=== PATIENT | female | born 1975 | race American Indian/Alaskan Native ===

== ENCOUNTER 2023-04-01 03:20 | Inpatient (IN) | payer SELFPAY ==
[~2023-04-01] VITALS: Wt 83.0 kg
[~2023-04-01 03:20] MED LIST: ALPR.5; AMOX500 PO; ATOR80 PO; BUSP5 PO; CEFD300 PO; CIPR500 PO; CYCL10 PO; DIAZ5 PO; ESCI10; GABA100 PO; HYDACE10B PO; HYDACE25S PR; HYDACE5 PO; HYDACE7.5 PO; IBUP200 PO; IBUP400; IBUP800; IBUP800 PO; KETO10 PO; LACT PO; LISI20 PO; LOPE2C PO; LORA1 PO; MEDR10 PO; MELATONIN5 M1 PO; META800 PO; METCAR750 PO; METH10 PO; METPRE4DP PO; NAPR500 PO; NAPR550 PO; NITR100CA PO; OXYACE5T PO; OXYACE7.5T PO; OXYC10ER PO; OXYC10TA19 PO; OXYC20ER; OXYC20ER PO; OXYC5; OXYC5 PO; PENVK250 PO; PENVK500 PO; PROACE100 PO; RANI150; TRAM50 PO
[2023-04-01 06:56] LABS: Albumin, Blood 4.2 g/dL (3.4-5.0); Albumin/Globulin Ratio 0.8 (0.8-1.8); BASOPHILS ABSOLUTE AUTO 0.02 K/mm3 (0.00-0.23); BASOPHILS PERCENT AUTO 0 % (0-2); Bilirubin, Total 2.3 mg/dL (0.1-1.0); Bun/Creatinine Ratio 14.2 (12.0-20.0); Creatinine, Blood 1.76 mg/dL (0.40-1.00); EOSINOPHILS ABSOLUTE AUTO 0.02 K/mm3 (0.00-0.68); EOSINOPHILS PERCENT AUTO 0 % (0-6); Globulin, Blood 5.1 g/dL (2.2-4.0); Hematocrit 50.8 % (33.0-51.0); Hemoglobin 18.5 g/dL (11.5-16.0); IMMATURE GRAN ABSOLUTE AUTO 0.04 K/mm3 (0.00-0.10); IMMATURE GRAN PERCENT AUTO 1 % (0-1); LYMPHOCYTES ABSOLUTE AUTO 1.16 K/mm3 (0.84-5.20); LYMPHOCYTES PERCENT AUTO 14 % (21-46); MONOCYTES ABSOLUTE AUTO 0.32 K/mm3 (0.16-1.47); MONOCYTES PERCENT AUTO 4 % (4-13); Mean Corpuscular HGB 33.5 pg (26.0-34.0); Mean Corpuscular HGB Conc 36.4 g/dL (31.5-36.5); Mean Corpuscular Volume 92 fL (80-100); NEUTROPHILS PERCENT AUTO 82 % (41-73); NRBC ABSOLUTE 0.02 K/mm3 (0.00-0.02); NRBC Auto 0.2 /100 WBC (0.0-0.2); Platelet Count 177 K/mm3 (150-400); Potassium, Blood 2.7 mmol/L (3.5-5.5); RDW Coefficient Variation 15.8 % (11.7-14.2); RDW Standard Deviation 51.3 fL (35.1-46.3); Red Blood Cell Count 5.52 M/mm3 (3.80-5.20); Total Protein, Blood 9.3 g/dL (6.4-8.2); White Blood Cell Count 8.56 K/mm3 (4.00-11.30)
[2023-04-01 09:51] LABS: Appearance, Urine Cloudy (Clear); Bilirubin, Urine Neg (Neg); Blood, Urine 2+ (Neg); Color, Urine Yellow (P-Yellow); Glucose Qualitative, Urine Neg (Neg); Ketones, Urine 1+ (Neg); Leukocyte Esterase, Urine 2+ (Neg); Nitrite, Urine Neg (Neg); Protein, Urine 3+ (Neg); Specific Gravity, Urine 1.015 (1.003-1.022); Urobilinogen, Urine 1+ (Normal)
[2023-04-01 10:09] LABS: U Amphetamine Screen Not Detected; U Barbituate Screen Not Detected; U Benzodiazapine Screen Not Detected; U Buprenorphine Screen Not Detected; U Cannabinoids Screen DETECTED; U Cocaine Screen Not Detected; U Methadone Screen Not Detected; U Methamphetamine Screen Not Detected; U Opiates Screen Not Detected; U Oxycodone Screen Not Detected; U Phencyclidine Screen Not Detected; U Propoxyphene Screen Not Detected
[2023-04-01 10:12] LABS: Squamous Epithelial Cells Rare /hpf (Few)
[2023-04-01 10:13] LABS: Amorphous Heavy (0-Heavy); Bacteria Many /hpf
[2023-04-01 10:15] VITALS: BP 151/139
[2023-04-01] MEDS ORDERED: OMEP20ER PO (11:01)
[2023-04-01] MEDS ORDERED: IBUP200 PO (11:01)
--- NOTE | 2023-04-01 11:45 | NUR ---
ADMISSION: REPORT RECEIVED FROM ED RN. PT TO UNIT AT 1015. PT A/O, AMBULATORY TO BED. NOTED TACHYCARDIA AND HTN. PT PAINFUL, WILL MONITOR. PT DENIES CP. TELE APPLIED AND BOX NUMBER VERIFIED BY SERENE GOEL. SINUS TACH 107. PT MEDICATED FOR PAIN AT R HIP RELATED TO FALL AT HOME. ORIENTED TO ROOM AND CALL LIGHT. ORDERED FLUIDS INFUSING WELL POTASSIUM.
[2023-04-01 11:47] VITALS: BP 163/104
[2023-04-01 12:45] VITALS: BP 122/89
[2023-04-01 13:56] LABS: Bun/Creatinine Ratio 16.1 (12.0-20.0); Calcium, Blood 8.8 mg/dL (8.5-10.1); Creatinine, Blood 1.43 mg/dL (0.40-1.00); Potassium, Blood 2.6 mmol/L (3.5-5.5)
[2023-04-01 14:02] VITALS: BP 139/91
--- NOTE | 2023-04-01 14:58 | NUR ---
1300 LAB RESULTS SHOW GLUCOSE [address] PORTER MADE AWARE, SEE NEW ORDERS
--- NOTE | 2023-04-01 17:11 | NUR ---
SUMMARY: NO ACUTE CHANGE SINCE ADMIT. A/O, NOTED TACHYCARDIA. DR. FLAHERTY IS AWARE. OTHERWISE TELE AND VSS TONIGHT AND CBG DID NOT NEED INSULIN COVERAGE. PT INDEP IN ROOM, DENIES DIZZINESS. NS WITH KCL INFUSING, PT VOIDING. PT MEDICATED WITH ULTRAM FOR PAIN AT R HIP FROM FALL AT HOME. NO ACUTE CONCERNS, PT USES CALL LIGHT AND MAKE NEEDS KNOWN.
[2023-04-01 19:50] VITALS: BP 175/78
[2023-04-01 20:29] LABS: Calcium, Blood 8.6 mg/dL (8.5-10.1); Creatinine, Blood 1.2 mg/dL (0.40-1.00); Potassium, Blood 2.8 mmol/L (3.5-5.5)
[2023-04-02] VITALS (7 sets, daily range): BP systolic 138–189; BP diastolic 89–108
[2023-04-02 05:16] LABS: BASOPHILS ABSOLUTE AUTO 0.01 K/mm3 (0.00-0.23); BASOPHILS PERCENT AUTO 0 % (0-2); EOSINOPHILS ABSOLUTE AUTO 0.12 K/mm3 (0.00-0.68); EOSINOPHILS PERCENT AUTO 2 % (0-6); Hematocrit 38.1 % (33.0-51.0); Hemoglobin 13.6 g/dL (11.5-16.0); IMMATURE GRAN ABSOLUTE AUTO 0.02 K/mm3 (0.00-0.10); IMMATURE GRAN PERCENT AUTO 0 % (0-1); LYMPHOCYTES ABSOLUTE AUTO 0.99 K/mm3 (0.84-5.20); LYMPHOCYTES PERCENT AUTO 15 % (21-46); MONOCYTES ABSOLUTE AUTO 0.33 K/mm3 (0.16-1.47); MONOCYTES PERCENT AUTO 5 % (4-13); Mean Corpuscular HGB 34.2 pg (26.0-34.0); Mean Corpuscular HGB Conc 35.7 g/dL (31.5-36.5); Mean Corpuscular Volume 96 fL (80-100); Mean Platelet Volume 12.1 fL (9.1-12.4); NEUTROPHILS ABSOLUTE AUTO 5.32 K/mm3 (1.96-9.15); NEUTROPHILS PERCENT AUTO 78 % (41-73); Platelet Count 73 K/mm3 (150-400); RDW Coefficient Variation 15.6 % (11.7-14.2); RDW Standard Deviation 53.7 fL (35.1-46.3); Red Blood Cell Count 3.98 M/mm3 (3.80-5.20); White Blood Cell Count 6.79 K/mm3 (4.00-11.30)
--- NOTE | 2023-04-02 05:25 | NUR ---
SHIFT SUMMARY PT ABLE TO REST T/O NIGHT. PT DENIES ANY N/V. CIWA SCORES ARE STABLE. PT IN SINUS TACH MOST OF NIGHT. BP ELEVATED THIS MORNING, MEDICATED PER EMAR. BP RECHECKED, STILL ELEVATED. NOTIFIED, ORDER FOR HYDRALAZINE. PT UP TO BATHROOM INDEPENDENTLY DURING NIGHT. PT PAIN MANAGED PER EMAR. C/O NAUSEA ONCE DURING NIGHT MEDICATED PER EMAR. TOLERTING PO INTAKE. NO OTHER CONCERNS AT THIS TIME. CALL LIGHT WITHIN REACH
[2023-04-02 05:52] LABS: Magnesium, Blood 2.2 mg/dL (1.6-2.4)
[2023-04-02 05:56] LABS: Albumin, Blood 3.2 g/dL (3.4-5.0); Albumin/Globulin Ratio 0.9 (0.8-1.8); Bilirubin, Total 2.5 mg/dL (0.1-1.0); Bun/Creatinine Ratio 18.8 (12.0-20.0); Calcium, Blood 8.4 mg/dL (8.5-10.1); Creatinine, Blood 1.01 mg/dL (0.40-1.00); Globulin, Blood 3.5 g/dL (2.2-4.0); Potassium, Blood 2.8 mmol/L (3.5-5.5); Total Protein, Blood 6.7 g/dL (6.4-8.2)
--- NOTE | 2023-04-02 17:07 | NUR ---
SUMMARY NO ACUTE CHANGES T/O SHIFT. PT INDEPENDENT IN ROOM. HAS DENIED WITHDRAWAL SYMPTOMS. CALL LIGHT IN REACH.
[2023-04-03 03:16] VITALS: BP 151/90
[2023-04-03 04:53] LABS: BASOPHILS ABSOLUTE AUTO 0.02 K/mm3 (0.00-0.23); BASOPHILS PERCENT AUTO 0 % (0-2); EOSINOPHILS ABSOLUTE AUTO 0.17 K/mm3 (0.00-0.68); EOSINOPHILS PERCENT AUTO 4 % (0-6); Hematocrit 34.3 % (33.0-51.0); Hemoglobin 12.1 g/dL (11.5-16.0); IMMATURE GRAN ABSOLUTE AUTO 0.03 K/mm3 (0.00-0.10); IMMATURE GRAN PERCENT AUTO 1 % (0-1); LYMPHOCYTES ABSOLUTE AUTO 0.87 K/mm3 (0.84-5.20); LYMPHOCYTES PERCENT AUTO 18 % (21-46); MONOCYTES PERCENT AUTO 6 % (4-13); Mean Corpuscular HGB 34.6 pg (26.0-34.0); Mean Corpuscular HGB Conc 35.3 g/dL (31.5-36.5); Mean Corpuscular Volume 98 fL (80-100); Mean Platelet Volume 12.8 fL (9.1-12.4); NEUTROPHILS ABSOLUTE AUTO 3.43 K/mm3 (1.96-9.15); NEUTROPHILS PERCENT AUTO 71 % (41-73); Platelet Count 58 K/mm3 (150-400); RDW Coefficient Variation 15.9 % (11.7-14.2); RDW Standard Deviation 55.8 fL (35.1-46.3); White Blood Cell Count 4.82 K/mm3 (4.00-11.30)
--- NOTE | 2023-04-03 05:44 | NUR ---
SHIFT SUMMARY PT UP FOR MOST OF NIGHT, REPORTS NOT BEING ABLE TO SLEEP WITH ALL THE NOISE. PT WAS GIVEN EAR PLUGS TO HELP WITH THE NOISE. PT DENIES ANY PAIN, OR N/V. TOLERATING PO INTAKE. HAVING DIARRHEA. VSS. NO OTHER CONCERNS AT THIS TIME. CALL LIGHT WITHIN REACH.
[2023-04-03 05:45] LABS: Magnesium, Blood 1.9 mg/dL (1.6-2.4)
[2023-04-03 05:53] LABS: Albumin, Blood 2.9 g/dL (3.4-5.0); Albumin/Globulin Ratio 0.9 (0.8-1.8); Bilirubin, Total 1.7 mg/dL (0.1-1.0); Bun/Creatinine Ratio 13.6 (12.0-20.0); Calcium, Blood 8.4 mg/dL (8.5-10.1); Creatinine, Blood 0.96 mg/dL (0.40-1.00); Globulin, Blood 3.3 g/dL (2.2-4.0); Phosphorus, Blood 0.9 mg/dL (2.5-4.9); Potassium, Blood 3.2 mmol/L (3.5-5.5); Total Protein, Blood 6.2 g/dL (6.4-8.2)
[2023-04-03 07:22] VITALS: BP 165/101
[2023-04-03 12:00] LABS: Phosphorus, Blood 1.9 mg/dL (2.5-4.9); Potassium, Blood 3.4 mmol/L (3.5-5.5)
[2023-04-03] MEDS ORDERED: LOPE2C PO (12:25)
[2023-04-03] MEDS ORDERED: METO25 PO (12:26)
[2023-04-03] MEDS ORDERED: POTASSIUM PHOSPHATE PO (12:31)
--- NOTE | 2023-04-03 14:00 | NUR ---
DISCHARGE: PACKET PRINTED AND PT EDUCATED. MEDS FAXED TO [facility] IN [facility]. PT LEFT UNIT ON FOOT AT ABOUT 1250, DENIED NEED FOR WHEELCHAIR
== END 2023-04-03 13:23 | disposition home or self-care (01) | DRG 897 ==
LOC: ER 03:20 → SURS 08:22 → ERHOLD 08:22 → SURS 09:58
PROVIDERS: Emergency Medicine; ADMIT Family Medicine
PROC: HZ2ZZZZ Detoxification Services for Substance Abuse Treatment (ICD-10-PCS; principal; 2023-04-01)
DX: F10.10 Alcohol abuse, uncomplicated (principal); N17.9 Acute kidney failure, unspecified; I50.32 Chronic diastolic (congestive) heart failure; E87.1 Hypo-osmolality and hyponatremia; E87.6 Hypokalemia; R55 Syncope and collapse; R94.31 Abnormal electrocardiogram [ECG] [EKG]; E83.39 Other disorders of phosphorus metabolism; K76.0 Fatty (change of) liver, not elsewhere classified; D69.6 Thrombocytopenia, unspecified; R19.7 Diarrhea, unspecified; F17.210 Nicotine dependence, cigarettes, uncomplicated; I11.0 Hypertensive heart disease with heart failure; G89.29 Other chronic pain; M54.9 Dorsalgia, unspecified; K21.9 Gastro-esophageal reflux disease without esophagitis; R00.0 Tachycardia, unspecified; Y90.8 Blood alcohol level of 240 mg/100 ml or more; F12.90 Cannabis use, unspecified, uncomplicated; R82.90 Unspecified abnormal findings in urine; Z79.891 Long term (current) use of opiate analgesic
CPT/HCPCS: 36415; 71045; 74177; 80048; 80053; 81001; 82947; 83036; 83690; 83735; 84100; 84132; 84484; 84703; 85025; 93005; 93010; 96365; 96366; 96375; 99285-25; A9270; J0360; J0780; J1200; J1815; J2060; J3475; J3480; J7030; J7050; J7060; Q9967

== ENCOUNTER 2023-09-07 10:01 | Emergency (ER) | payer OTHER ==
[~2023-09-07] VITALS: Ht 162.6 cm; Wt 61.2 kg
[~2023-09-07 10:01] MED LIST changes: +METO25 PO; +OMEP20ER PO; +POTASSIUM PHOSPHATE PO
[2023-09-07] MEDS ORDERED: Ondansetron HCl 2 MG / ML 2ML Vial IV ONE ×2 (10:55→14:20)
[2023-09-07 11:25] LABS: Source, Urine Clean Catch
[2023-09-07 11:30] LABS: Appearance, Urine Cloudy (Clear); Blood, Urine 2+ (Neg); Color, Urine Amber (P-Yellow); Glucose Qualitative, Urine Neg (Neg); Ketones, Urine 3+ (Neg); Leukocyte Esterase, Urine 3+ (Neg); Nitrite, Urine Pos (Neg); Protein, Urine 3+ (Neg); Specific Gravity, Urine 1.015 (1.003-1.022); Urobilinogen, Urine 3+ (Normal)
[2023-09-07 11:32] LABS: BASOPHILS ABSOLUTE AUTO 0.04 K/mm3 (0.00-0.23); BASOPHILS PERCENT AUTO 1 % (0-2); EOSINOPHILS ABSOLUTE AUTO 0.01 K/mm3 (0.00-0.68); EOSINOPHILS PERCENT AUTO 0 % (0-6); Hematocrit 31.4 % (33.0-51.0); Hemoglobin 10.5 g/dL (11.5-16.0); IMMATURE GRAN ABSOLUTE AUTO 0.02 K/mm3 (0.00-0.10); IMMATURE GRAN PERCENT AUTO 0 % (0-1); LYMPHOCYTES ABSOLUTE AUTO 1.29 K/mm3 (0.84-5.20); LYMPHOCYTES PERCENT AUTO 16 % (21-46); MONOCYTES ABSOLUTE AUTO 0.58 K/mm3 (0.16-1.47); MONOCYTES PERCENT AUTO 7 % (4-13); Mean Corpuscular HGB 30.3 pg (26.0-34.0); Mean Corpuscular HGB Conc 33.4 g/dL (31.5-36.5); Mean Corpuscular Volume 91 fL (80-100); Mean Platelet Volume 10.9 fL (9.1-12.4); NEUTROPHILS ABSOLUTE AUTO 6.08 K/mm3 (1.96-9.15); NEUTROPHILS PERCENT AUTO 76 % (41-73); Platelet Count 197 K/mm3 (150-400); RDW Coefficient Variation 16.5 % (11.7-14.2); RDW Standard Deviation 55.3 fL (35.1-46.3); Red Blood Cell Count 3.47 M/mm3 (3.80-5.20); White Blood Cell Count 8.02 K/mm3 (4.00-11.30)
[2023-09-07 11:40] LABS: Bilirubin, Urine 2+ (Neg)
[2023-09-07 11:41] LABS: Bacteria Many /hpf; Squamous Epithelial Cells Few /hpf (Few); White Blood Cells, Urine TNTC /hpf (0-5)
[2023-09-07 11:54] LABS: Albumin, Blood 2.3 g/dL (3.4-5.0); Albumin/Globulin Ratio 0.6 (0.8-1.8); Bun/Creatinine Ratio 19.6 (12.0-20.0); Calcium, Blood 8.3 mg/dL (8.5-10.1); Creatinine, Blood 0.56 mg/dL (0.40-1.00); Globulin, Blood 3.8 g/dL (2.2-4.0); Potassium, Blood 3.4 mmol/L (3.5-5.5); Total Protein, Blood 6.1 g/dL (6.4-8.2)
[2023-09-07] MEDS ORDERED: NS 1,000 ML IV SCH (14:20)
[2023-09-07 15:22] VITALS: BP 121/72
[2023-09-07] MEDS ORDERED: Cephalexin Monohydrate 500 MG Cap PO ONE (15:35)
[2023-09-07] MEDS ORDERED: ONDA4ODT MM (15:41)
[2023-09-07] MEDS ORDERED: CEPH500 PO (15:41)
== END 2023-09-07 15:49 | disposition home or self-care (01) ==
LOC: ER 10:01
PROVIDERS: Physician Assistant
DX: K52.9 Noninfective gastroenteritis and colitis, unspecified (principal); N39.0 Urinary tract infection, site not specified; B30.9 Viral conjunctivitis, unspecified; E87.6 Hypokalemia; E83.51 Hypocalcemia; I10 Essential (primary) hypertension; K21.9 Gastro-esophageal reflux disease without esophagitis; F17.210 Nicotine dependence, cigarettes, uncomplicated
CPT/HCPCS: 80053; 81001; 83690; 85025; 87077; 87086; 87186; 96361; 96374; 96376; 99284-25; A9270; J2405; J7030